=== PATIENT | male | born 1965 | race Caucasian/White ===

== ENCOUNTER 2017-08-08 00:22 | Inpatient (IN) ==
[2017-08-08] MEDS ORDERED: MOTRIN SUSP PO STA (00:52)
--- NOTE | 2017-08-08 02:49 | CT ---
EXAM: CT of the abdomen and pelvis without contrast. HISTORY: Diarrhea. PROCEDURE: Contiguous axial CT images of the abdomen and pelvis without contrast with coronal and sa gittal reformats. FINDINGS: There is a fluid density cyst in the liver. The gallbladder, pancreas, spleen, adrenal glan ds and kidneys are normal in appearance. The abdominal aorta is within normal limits in diameter. Th e visualized loops of bowel and appendix are normal in appearance. No free fluid or free air in the abdomen or pelvis. The bladder is adequately filled with no abnormality identified. The seminal vesic les and prostate gland are unremarkable. There are degenerative changes in the spine. Impression: No acute findings in the abdomen or pelvis. Simple hepatic cyst.
--- NOTE | 2017-08-08 02:50 | CT ---
EXAM: CT chest without intravenous contrast 08/08/2017. Sagittal and coronal reformatted images HISTORY: Cough COMPARISON: None. FINDINGS: The heart size appears within normal limits. No pericardial effusion. There is bilateral bronchial wall thickening suggestive of bronchitis/bronchiolitis. Reticulonodular infiltrates are present. This is most prominent within the lower aspect of both lungs. This appear s most severe within the left lower lobe. This is likely due to infectious/inflammatory pneumonitis. There is no pulmonary consolidation. No pleural effusion or pneumothorax. IMPRESSION: 1. Diffuse bronchial wall thickening suggesting bronchitis/bronchiolitis. 2. Bilateral basilar reticulonodular infiltrates. This is most prominent in the left lower lobe. T his likely represents infectious/inflammatory pneumonitis.
[2017-08-08] MEDS ORDERED: SODIUM CHLORIDE 1,000 ML IV STA (03:05)
[2017-08-08] MEDS ORDERED: TAMIFLU PO STA (03:06)
[2017-08-08] MEDS ORDERED: ROCEPHIN 1 GM in SODIUM CHLORIDE 50 ML IV STA (03:07)
--- NOTE | 2017-08-08 03:10 | ED.PDOC ---
General ED Provider: Dr. SOHAN MOONEY-ER Chief Complaint: Shortness of Air Stated Complaint: im coughing and not eating much Time Seen by Physician: 00:30 Mode of Arrival: Walk-In Information Source: Patient Exam Limitations: No limitations Primary Care Provider: SOHAN MOONEY Nursing and Triage Documentation Reviewed and Agree: Yes Reviewed sepsis parameters & appropriate labs ordered?: Yes System Inflammatory Response Syndrome: Not Applicable Sepsis Protocol: For patient's 13 years and over: Temp is 96.8 and below OR 101 and greater Pulse >90 BPM Resp >20/minute Acutely Altered Mental Status Are patient's symptoms suggestive of a new infection, such as: -Pneumonia -Skin, Soft Tissue -Endocarditis -UTI -Bone, Joint Infection -Implantable Device -Acute Abdominal Infection -Wound Infection -Meningitis -Blood Stream Catheter Infection -Unknown Respiratory Complaint Exam - Respiratory Complaint/Exam Onset/Duration: 3 days Symptoms Are: Still present Timing: Constant Initial Severity: Mild Current Severity: Moderate Location: Chest Character: Reports: Productive cough Aggravating: Reports: URI Alleviating: Reports: None Associated Signs and Symptoms: Reports: Fever, Chills, URI, Nasal congestion, Decreased oral intake. Denies: Rapid breathing, Dyspnea, Chest pain, Pleuritic chest pain, Wheezing, Hemoptysis, Dizziness, Calf pain, Calf swelling, Edema, Hoarseness, Sinus discomfort, Vomiting, Sore throat, Weight loss, Increased thirst, Increased appetite History of Healthcare-Acquired Pneumonia: No Status Asthmaticus Risk Factors: Reports: None Home Oxygen Use: No Recent Stress Test: No Recent Echo/LV Function: No Current Antibiotic Use: No Current Asthma Medication Use: No Respiratory Distress: None Inadequate Respiratory Effort: No Dysphagia Present: No Stridor Present: No JVD Present: No Accessory Muscle Use: No Retractions: Not Present Diminished Breath Sounds: No Sinus Tenderness: None Grunting Respirations: No Kussmaul Respirations: No Differential Diagnoses: COPD Exacerbation, Pneumonia, Influenza Review of Systems - Review Of Systems Constitutional: Reports: Chills, Fever, Weakness Eyes: Reports: No symptoms Ears, Nose, Mouth, Throat: Reports: Nose discharge Respiratory: Reports: Cough, Short of air Cardiac: Reports: No symptoms GI: Reports: Nausea, Poor appetite, Poor fluid intake : Reports: No symptoms Musculoskeletal: Reports: No symptoms Skin: Reports: No symptoms Neurological: Reports: No symptoms Endocrine: Reports: No symptoms Hematologic/Lymphatic: Reports: No symptoms All Other Systems: Reviewed and Negative Past Medical History - Past Medical History Previously Healthy: No Endocrine: Reports: Unknown Cardiovascular: Reports: Unknown Respiratory: Reports: Unknown Hematological: Reports: Unknown Gastrointestinal: Reports: Unknown Genitourinary: Reports: Unknown Neuro/Psych: Reports: Unknown Musculoskeletal: Reports: Unknown Cancer: Reports: Unknown - Surgical History General Surgical History: Reports: Unknown - Family History Family History: Reports: Unknown - Social History Smoking Status: Current every day smoker Hx Substance Use: No Alcohol Screening: None - Immunizations Tetanus Shot up to Date: No (unknown) Physical Exam - Physical Exam Appearance: Well-appearing Eyes: JUANA, EOMI, Conjunctiva clear ENT: Ears normal, Nose normal, Oropharynx normal Neck: Supple Respiratory: Crackles, Rhonchi Cardiovascular: RRR GI/: Soft Musculoskeletal: Normal strength, ROM intact, No edema, No calf tenderness Skin: Warm, Dry, Normal color Neurological: Sensation intact, Motor intact, Reflexes intact, Cranial nerves intact, Alert, Oriented Psychiatric: Affect appropriate, Mood appropriate Interpretation - Radiology Interpretation Radiology Interpretation By: Radiologist Radiology Results: Positive Exam Interpreted: CT Scan Critical Care Note - Critical Care Note Total Time (mins): 0 Course - Course Hematology/Chemistry: 08/08/17 01:05 08/08/17 01:05 Orders, Labs, Meds: Lab Review 08/08/17 08/08/17 08/08/17 00:50 00:52 01:05 WBC 10.09 RBC 5.08 Hgb 15.9 Hct 42.7 MCV 84.1 MCH 31.3 H MCHC 37.2 H RDW Coeff of Gladis 12.6 Plt Count 171 Immature Gran % (Auto) 0.4 Neut % (Auto) 81.0 Lymph % (Auto) 12.2 Teller % (Auto) 6.2 Eos % (Auto) 0.0 Baso % (Auto) 0.2 Immature Gran # (Auto) 0.0 Neut # 8.2 H Lymph # 1.2 Teller # 0.6 Eos # 0.0 Baso # 0.0 ESR 23 H Puncture Site Rr O2 Saturation 91.0 L ABG pH 7.490 H ABG pCO2 32.1 L ABG pO2 55.0 L* ABG HCO3 24.5 ABG Total CO2 25 ABG Base Excess 1 Jair Test + Sodium Potassium Chloride Carbon Dioxide Anion Gap BUN Creatinine Estimated GFR (MDRD) BUN/Creatinine Ratio Glucose Calcium Total Bilirubin AST ALT Alkaline Phosphatase Total Protein Albumin Globulin Albumin/Globulin Ratio Influenza A (Rapid) Negative by naat Influenza B (Rapid) Positive by naat H 08/08/17 01:05 WBC RBC Hgb Hct MCV MCH MCHC RDW Coeff of Gladis Plt Count Immature Gran % (Auto) Neut % (Auto) Lymph % (Auto) Teller % (Auto) Eos % (Auto) Baso % (Auto) Immature Gran # (Auto) Neut # Lymph # Teller # Eos # Baso # ESR Puncture Site O2 Saturation ABG pH ABG pCO2 ABG pO2 ABG HCO3 ABG Total CO2 ABG Base Excess Jair Test Sodium 130 L Potassium 3.6 Chloride 93 L Carbon Dioxide 23 Anion Gap 17.6 BUN 26 H Creatinine 0.89 Estimated GFR (MDRD) 89.00 BUN/Creatinine Ratio 29.21 Glucose 120 H Calcium 9.1 Total Bilirubin 0.4 AST 66 H ALT 49 Alkaline Phosphatase 57 Total Protein 7.2 Albumin 3.3 L Globulin 3.9 Albumin/Globulin Ratio 0.85 Influenza A (Rapid) Influenza B (Rapid) Orders Category Date Time Status ABG DRAW REQUEST Stat CARDIO 08/08/17 00:52 Completed ED IV/MEDIPORT/POWERPORT .ONCE EMERGENCY 08/08/17 03:05 Active OXYGEN [ED APPLY O2] .ONCE EMERGENCY 08/08/17 03:07 Active ABG Stat LAB 08/08/17 00:52 Completed BLOOD CULTURE (ED ONLY) Stat LAB 08/08/17 01:05 Received CBC W/ AUTO DIFF Stat LAB 08/08/17 01:05 Completed COMPREHENSIVE METABOLIC PANEL Stat LAB 08/08/17 01:05 Completed ESR Stat LAB 08/08/17 01:05 Completed FLU A/B MOLECULAR Stat LAB 08/08/17 00:50 Completed MOLECULAR GROUP A STREP Stat LAB 08/08/17 00:50 Completed URINALYSIS C & S IF INDICATED Stat LAB 08/08/17 03:00 Ordered 0.9 % Sodium Chloride [Saline Flush] MEDS 08/08/17 03:05 Ordered 1 syr IVF PRN PRN Ceftriaxone Sodium [Rocephin] 1 gm MEDS 08/08/17 03:07 Active 0.9 % Sodium Chloride [Sodium Chloride] 50 ml IV ONCE Ibuprofen Susp [Motrin Susp] MEDS 08/08/17 00:52 Discontinued 800 mg PO ONCE STA Oseltamivir Phosphate [Tamiflu] MEDS 08/08/17 03:06 Stat 75 mg PO ONCE STA Sodium Chloride 0.9% [Sodium Chloride] 1,000 ml MEDS 08/08/17 03:[address] ABDOMEN/PELVIS WO CONTRAST Stat RADS 08/08/17 00:[address] CHEST W/O CONTRAST Stat RADS 08/08/17 00:51 Completed Medications Generic Name Dose Route Start Last Admin Trade Name Freq PRN Reason Stop Dose Admin Sodium Chloride 1,000 mls @ 1,000 mls/hr 08/08/17 03:05 Sodium Chloride IV 08/08/17 04:04 BOLUS STA Ceftriaxone Sodium 1 gm/ 50 mls @ 75 mls/hr 08/08/17 03:07 Sodium Chloride IV 08/08/17 03:46 ONCE STA Oseltamivir Phosphate 75 mg 08/08/17 03:06 Tamiflu PO 08/08/17 03:07 ONCE STA Sodium Chloride 1 syr 08/08/17 03:05 Saline Flush IVF PRN PRN To flush IV Discontinued Medications Generic Name Dose Route Start Last Admin Trade Name Freq PRN Reason Stop Dose Admin Ibuprofen 800 mg 08/08/17 00:52 08/08/17 01:05 Motrin Susp PO 08/08/17 00:53 800 mg ONCE STA Administration Vital Signs: Temp Pulse Resp BP Pulse Ox 08/08/17 00:25 99.6 F 89 20 124/80 94 L Departure - Departure Time of Disposition: 03:10 Disposition: ADMITTED INPATIENT Discharge Problem: Influenza Acute respiratory failure Qualifiers: Respiratory failure complication: hypoxia Qualified Code(s): J96.01 - Acute respiratory failure with hypoxia Pneumonia Qualifiers: Pneumonia type: due to unspecified organism Laterality: unspecified laterality Lung location: unspecified part of lung Qualified Code(s): J18.9 - Pneumonia, unspecified organism Condition: Good Pt referred to PMD for follow-up: Yes IPMP verified?: No Allergies/Adverse Reactions: Allergies bee pollen Adverse Reaction (Verified 08/08/17 00:35) Home Medications: Ambulatory Orders 1 [No Reported Medications] 08/08/17 Disposition Discussed With: Patient
[2017-08-08] MEDS ORDERED: TYLENOL PO PRN (03:11)
[2017-08-08] MEDS ORDERED: ALBUTEROL 0.083% NEB IH SCH ×2 (03:30→06:00)
[2017-08-08] MEDS ORDERED: ROCEPHIN ONE (03:35)
[2017-08-08] MEDS: TAMIFLU PO SCH ×3 (03:41→20:22)
[2017-08-08] MEDS ORDERED: ALBUTEROL 0.083% NEB NEB ONE (04:00)
[2017-08-08] MEDS ORDERED: SODIUM CHLORIDE IV SCH (04:30)
[2017-08-08] MEDS ORDERED: VANCOMYCIN IV SCH (04:30)
[2017-08-08] MEDS: SODIUM CHLORIDE 1,000 ML IV SCH ×2 (04:46→19:11)
[2017-08-08 05:12] VITALS: BMI 20.6
[2017-08-08] MEDS: LOVENOX SUBCUT SCH (09:29)
--- NOTE | 2017-08-08 10:22 | HP ---
CHIEF COMPLAINT: "I'm coughing, I'm not eating and I'm short of breath." DISCUSSION: This is a 52 year old gentleman on no home medications, who is a smoker who presented to the emergency department after several days of cough productive of a mucoid sputum. His pO intake has been diminished. He has been short of breath with moderate exertion and there is no hemoptysis or chest pains. The patient was seen in the emergency department. He was found to have respirator failure with blood gasses revealing a pH 7.4, pCO2 32, Po2 55. Lab evaluation did reveal a WBC of 10,000. He was found to have sodium diminished at 130 and creatinine elevated at 26 constant with mild dehydration. The influenza B swab was found to be positive. Chest CT did reveal bilateral bibasilar Reticulonodular infiltrates constant with pneumonia. The patient was admitted to my services for treatment of his pneumonia. PAST MEDICAL HISTORY: MEDICATIONS: None ALLERGIES: Bee pollen PAST MEDICAL/SURGICAL HISTORY: History of hernia repair SOCIAL HISTORY: One pack per day smoker and denies any alcohol or illicit drug use. FAMILY HISTORY: Positive for heart disease REVIEW OF SYSTEMS: Nasal congestion, sore throat, cough, Short of breath. No headaches, visual changes, tinnitus, hemoptysis, blood in the stool, urinary symptoms or seizures. PHYSICAL EXAMINATION: V/S: Temperature 97.9, pulse 88, respiratory rate 19, blood pressure 142/90 GENERAL: This is an ill appearing 52 year old gentleman who appears his stated age. His is alert and oriented times three. HEENT: Pupils are round. NECK: Supple. CHEST: Scattered rhonchi and rales. CARDIOVASCULAR: Regular rate and rhythm. ABDOMEN: Soft, nontender. EXTREMITIES: Distal extremities without cyanosis or edema. ASSESSMENT: 1. Acute respiratory failure secondary #1 Influenza B 2. Pneumonia 3. Tobacco use PLAN: 1. Antibiotics to include Vancomycin to cover for possible Staph 2. Tamiflu 3. Oxygen 4. Pulmonary updraft 5. Continue fluid support 6. Watch electrolyte Please see orders. MTDD
[2017-08-08] MEDS: ALBUTEROL 0.083% NEB NEB SCH ×3 (11:18→22:40)
[2017-08-08] MEDS: ROCEPHIN 1 GM in SODIUM CHLORIDE 50 ML IV SCH (20:22)
[2017-08-08] MEDS: VANCOMYCIN 750 MG in SODIUM CHLORIDE 250 ML IV SCH (21:17)
[2017-08-09] MEDS: ALBUTEROL 0.083% NEB NEB SCH ×4 (04:43→22:34)
[2017-08-09] MEDS: TAMIFLU PO SCH ×2 (08:43→20:01)
[2017-08-09] MEDS: LOVENOX SUBCUT SCH (08:44)
[2017-08-09] MEDS: VANCOMYCIN 750 MG in SODIUM CHLORIDE 250 ML IV SCH ×2 (08:45→20:52)
[2017-08-09] MEDS: SODIUM CHLORIDE 1,000 ML IV SCH (14:49)
[2017-08-09] MEDS: ROCEPHIN 1 GM in SODIUM CHLORIDE 50 ML IV SCH (20:01)
[2017-08-10] MEDS: ALBUTEROL 0.083% NEB NEB SCH ×2 (04:43→11:40)
[2017-08-10] MEDS: SODIUM CHLORIDE 1,000 ML IV SCH ×2 (06:17→11:17)
[2017-08-10] MEDS: TAMIFLU PO SCH (08:07)
[2017-08-10] MEDS: LOVENOX SUBCUT SCH (08:07)
[2017-08-10] MEDS: VANCOMYCIN 750 MG in SODIUM CHLORIDE 250 ML IV SCH (08:08)
--- NOTE | 2017-08-10 10:03 | DI ---
EXAM: PA and lateral views of the chest HISTORY: Pneumonia COMPARISON: Chest CT 08/08/2017 FINDINGS: The cardiomediastinal silhouette is normal. There is no pneumothorax or pleural effusion. There is no consolidation, nodule or mass. The osseous structures are unremarkable. IMPRESSION: No acute cardiopulmonary process
[2017-08-10] MEDS ORDERED: K-DUR PO STA (11:02)
[2017-08-10 17:27] VITALS: BP 122/72; TEMP 98.3
[2017-08-10] MEDS ORDERED: ALBUTEROL 0.083% NEB NEB SCH (18:00)
--- NOTE | 2017-08-11 08:01 | PN ---
DATE OF VISIT: 08/09/17 SUBJECTIVE: Radu is feeling much better. He is able to eat now. He denies any shortness of breath, he still has cough but it is much better. PHYSICAL EXAMINATION: VITALS: Temperature 97.6, pulse 78, pulse 18 and blood pressure 130/80 HEENT: Pupils are round NECK: Supple CHEST: Course rhonchi CARDIOVASCULAR: Regular rate and rhythm ABDOMEN:Soft, nontender EXTREMITIES:Distal extremities without cyanosis or edema. ASSESSMENT: 1. Influenza 2. Pneumonia PLAN: 1. Continue antibiotics 2. Will repeat chest x-ray to look at the progress of the pneumonia Please see orders. MTDD
--- NOTE | 2017-08-11 08:05 | DS ---
PRINCIPAL DIAGNOSIS: 1. Acute respiratory failure secondary to pneumonia 2. Influenza DISCUSSION: This is a 52 year old gentleman on no home medications, who is a smoker who presented to the emergency department after several days of cough productive of a mucoid sputum. His pO intake has been diminished. He has been short of breath with moderate exertion and there is no hemoptysis or chest pains. The patient was seen in the emergency department. He was found to have respirator failure with blood gasses revealing a pH 7.4, pCO2 32, Po2 55. Lab evaluation did reveal a WBC of 10,000. He was found to have sodium diminished at 130 and creatinine elevated at 26 constant with mild dehydration. The influenza B swab was found to be positive. Chest CT did reveal bilateral bibasilar Reticulonodular infiltrates constant with pneumonia. The patient was admitted to my services for treatment of his pneumonia. CLINICAL COURSE: The patient was admitted and he was found to be hypoxic in the emergency department. We initiation antibiotics, Tamiflu with marked improvement of his symptoms. His cough abated and he was able to eat. His shortness of breath abated and on 08/10/17 revealed the pneumonia had cleared. His oximetry was improved and he was tolerated regular diet and activity. At this point we felt that the patient could be discharged so he was discharged with antibiotics and steroids. He will followup in one week. We discussed tobacco cessation. YULIYA
== END 2017-08-10 18:45 | disposition home or self-care (01) | DRG 193 ==
LOC: ED 00:22 → MEDSURG B 03:35
PROVIDERS: ADMIT Family Medicine; ATTEND Family Medicine
DX: J10.1 Influenza due to other identified influenza virus with other respiratory manifestations (principal); J96.01 Acute respiratory failure with hypoxia; J18.9 Pneumonia, unspecified organism; R11.0 Nausea; R50.9 Fever, unspecified; F17.210 Nicotine dependence, cigarettes, uncomplicated
CPT/HCPCS: 36415; 80053; 81001; 82803; 85007; 85025; 85651; 87040; 87502; 87651; 93005; 93010; 94640; 96361; 96365; 97802; 99284